=== PATIENT | female | born 2000 | race Two or more races ===

== ENCOUNTER 2024-08-19 07:10 | Inpatient (IN) | payer OTHER ==
[2024-08-19] VITALS (7 sets, daily range): BP systolic 114–138; BP diastolic 60–79
[~2024-08-19] VITALS: Ht 165.1 cm; Wt 74.4 kg
[2024-08-19 07:55] LABS: HEMATOCRIT 31.7 % (36.0-45.00); HEMOGLOBIN 10.7 g/dL (12.0-15.00); MEAN CORPUSCULAR HEMOGLOBIN 27.9 pg (27.00-32.0); MEAN CORPUSCULAR HGB CONC 33.7 g/dl (32.0-36.0); PLATELET COUNT 248 K/uL (150-450); RED BLOOD COUNT 3.82 M/uL (4.00-6.00); RED CELL DISTRIBUTION WIDTH 19.2 % (11.5-14.5)
[2024-08-19 08:10] LABS: PH,URINE 6.5 (5.0-8.0); URINE APPEARANCE Cloudy; URINE BILIRRUBIN Negative (NEGATIVE); URINE BLOOD Small; URINE COLOR Yellow; URINE GLUCOSE Negative (NEGATIVE); URINE KETONE Negative (NEGATIVE); URINE LEUKOCYTE Small; URINE NITRATE Negative; URINE PROTEIN Trace (NEGATIVE); URINE UROBILINOGEN 0.2 E.U./dl
[2024-08-19 08:13] LABS: URINE WBC 189.5 uL (0.0-23.2)
[2024-08-19 09:11] LABS: URINE BACTERIA > 9821.5 uL (0.0-1933); URINE CAST 0.45 uL (0.0-1.40); URINE EPITHELIAL CELLS > 201.7 uL (0.0-38.8)
[2024-08-19 09:28] LABS: INR < 0.93; PARTIAL THROMBOPLASTIN TIME 23.6 SECONDS (22.0-34.0); PROTHROMBIN TIME 10.1 SECONDS (9.0-11.5)
[2024-08-19] MEDS ORDERED: OXYTOCIN 20 UNITS/500ML RL PIGGYBAG IV SCH (12:00)
[2024-08-19] MEDS ORDERED: OXYTOCIN 1,000 ML IV SCH (18:30)
[2024-08-19] MEDS ORDERED: CHLORHEXIDINE GLUCONATE 120 ML BOTTLE TP SCH (18:30)
[2024-08-19] MEDS ORDERED: ACETAMINOPHEN 500 MG GEL..CAP PO PRN (18:30)
[2024-08-19] MEDS ORDERED: LIDOCAINE HCL 1% 10ML VIAL IJ ONE (18:45)
[2024-08-19 23:12] LABS: HEMATOCRIT 29.9 % (36.0-45.00); MEAN CELL VOLUME 84.6 fL (80.00-100.00); MEAN CORPUSCULAR HGB CONC 33.6 g/dl (32.0-36.0); PLATELET COUNT 228 K/uL (150-450); RED BLOOD COUNT 3.54 M/uL (4.00-6.00); RED CELL DISTRIBUTION WIDTH 19.3 % (11.5-14.5)
[2024-08-19 23:15] LABS: MEAN CORPUSCULAR HEMOGLOBIN 28.2 pg (27.00-32.0)
[2024-08-20] VITALS: BP 116/72
[2024-08-20 08:00] VITALS: BP 121/78
[2024-08-20] MEDS ORDERED: PNV,CALCIUM 72/IRON/FOLIC ACID 1 TAB TABLET PO SCH (09:00)
[2024-08-20] MEDS ORDERED: PRENATABS RX T1 EACH PO (11:11)
[2024-08-20 16:00] VITALS: BP 114/70
[2024-08-20 20:00] VITALS: BP 125/74
[2024-08-21 00:50] VITALS: BP 109/62
[2024-08-21 08:21] VITALS: BP 135/67
== END 2024-08-21 16:10 | disposition home or self-care (01) | DRG 807 ==
LOC: LDR 07:10 → OB/GYN 17:48
PROVIDERS: ADMIT Obstetrics & Gynecology; ATTEND Obstetrics & Gynecology
PROC: 10E0XZZ Delivery of Products of Conception, External Approach (ICD-10-PCS; principal; 2024-08-19)
PROC: 0W8NXZZ Division of Female Perineum, External Approach (ICD-10-PCS; 2024-08-19)
PROC: 4A1HXCZ Monitoring of Products of Conception, Cardiac Rate, External Approach (ICD-10-PCS; 2024-08-19)
DX: O80 Encounter for full-term uncomplicated delivery (principal); Z37.0 Single live birth; Z3A.39 39 weeks gestation of pregnancy; Z20.822 Contact with and (suspected) exposure to COVID-19